=== PATIENT | female | born 1995 | race Caucasian/White ===

== ENCOUNTER 2024-09-17 13:17 | Inpatient (IN) | payer BC, SELFPAY ==
[2024-09-17] VITALS (14 sets, daily range): BP systolic 123–137; BP diastolic 73–92; PULSE 60–96; TEMP 36.2–36.8
[2024-09-17 12:37] LABS: Basophils Percent Auto 0.4 % (0.2-1.2); Eosinophils Percent Auto 0.4 % (0-4.4); Hematocrit 29.6 % (37.0-47.0); Hemoglobin 9.9 g/dL (12.0-15.0); Lymphocytes Absolute Auto 1.91 K/mm3 (0.9-3.2); Mean Corpuscular HGB Conc 33.4 g/dl (32-36); Mean Corpuscular Hemoglobin 29.6 pg (26-34); Mean Corpuscular Volume 88.6 fl (80-100); Mean Platelet Volume 11.1 fl (7.4-10.4); Monocytes Absolute Auto 0.7 K/mm3 (0.1-0.6); Monocytes Percent Auto 7.2 % (2.6-8.5); Neutrophils Absolute Auto 6.8 K/mm3 (1.3-6.7); Platelet Count Result 174 k/mm3 (150-375); Red Blood Count 3.34 M/mm3 (4.2-5.4); Red Cell Distribution Width 12.7 % (11.5-14.5); White Blood Count 9.5 K/mm3 (4.5-10.0)
[2024-09-17 12:52] LABS: Alanine Aminotransferase 36 U/L (6-35); Albumin Level 3.2 g/dL (3.5-5.1); Alkaline Phosphatase 173 U/L (38-126); Anion Gap 6 mmol/L (4-12); Aspartate Amino Transferase 35 U/L (14-36); Bilirubin,Total 0.6 mg/dL (0.2-1.3); Blood Urea Nitrogen 14 mg/dL (7-17); Calcium 8.2 mg/dL (8.4-10.2); Carbon Dioxide 20 mmol/L (22-30); Chloride 107 mmol/L (98-107); Estimated Glomerular Filt Rate > 60; Glucose 65 mg/dL (65-110); Potassium 4.2 mmol/L (3.4-5.0); Sodium 133 mmol/L (137-145); Uric Acid 6.7 mg/dL (2.5-7.5)
[2024-09-17 12:54] LABS: Add Urine Microscopic? YES; Appearance Urine Clear (Clear); Bacteria Urine 1+ /hpf; Bilirubin Urine Negative (Negative); Blood Urine Trace (Negative); Color Urine Yellow (Yellow); Glucose Urine UA Negative (Negative); Ketones Urine Negative (Negative); Leukocyte Esterase Ur Trace LEU/UL (Negative); Need Manual Microscopic Reviewed; Nitrate Urine Negative (Negative); Non Pathogenic Casts 0-2; Protein Urine 2+ mg/dL (Negative); RBC Urine 0-2 /hpf (0-2); Specific Grav Ur 1.007 (1.001-1.035); Squamous Epithelial Cell Urine Moderate /hpf (Few); Urobilinogen Urine 0.2 mg/dL (<2.0); pH Urine 6.5 (5.0-9.0)
[2024-09-17 13:02] LABS: Creatinine Urine 44.4 mg/dL; Total Protein Urine Random 168 mg/dL; Ur Ttl Prot Creatinine Ratio 3.78 mg/mg (0-0.20)
--- NOTE | 2024-09-17 14:57 | P.HP_ITS ---
H&P: HPI History of Present Illness Date/Time: 09/17/24 14:57 Chief Complaint: Headache and elevated blood pressure at term Narrative: 28-year-old 1 para 0 whose with unknown last menstrual. Been an EDC of 10/05/2024 confirmed by 10 week ultrasound presents at 37 half weeks gestation with headache and elevated blood pressures old ultrasound 37 weeks showed the baby to be 7lb 9oz she is presently proteinuric and the a with mildly elevated blood pressures she will undergo induction of labor secondary to these abnormal findings she is negative for group B strep PMFSH Family History Family History Grandparent Lung cancer Grandparent Cerebrovascular accident Grandparent Colon cancer Social History Social History Smoking status: Never smoker Substance use: current Do You Feel Safe in your Home?: Yes Lack of Transportation: No Lack of Food: Never True Current Housing: I Have Housing Concerned About Future Housing: No Difficulty Paying Gas/Electric Bills: No Difficulty Paying for Meds: No Currently Unemployed: No Education: Bachelor's Degree Difficulty w/ Childcare or Family Care: No Spiritual care concerns: No Meds Home Medications and Allergies Home Medications ?Medication ?Instructions ?Recorded ?Confirmed ?Type famotidine 20 mg tablet (Pepcid) 20 mg PO DAILY 09/06/24 09/17/24 History vit no.95-ferrous 1 tablet PO DAILY 09/06/24 09/17/24 History fumarate 28 mg-folic acid 800 mcg tablet () Allergies Allergy/AdvReac Type Severity Reaction Status Date / Time No Known Allergies Allergy Verified 09/06/24 14:58 Vital Signs Vital Signs - 24 hr 09/17/24 12:46 09/17/24 13:01 09/17/24 13:30 Pulse Rate 66 60 Blood Pressure 133/89 128/84 Oxygen Delivery Room Air 09/17/24 14:45 Pulse Rate 73 Blood Pressure 136/92 H Oxygen Delivery Exam Const: General: cooperative, healthy appearing and comfortable Nutritional Appearance: average body habitus Orientation/consciousness: oriented to person, oriented to place and oriented to time HENMT: Head: normal to inspection Resp: Effort & Inspection: normal respiratory effort Cardio: Rate: regular rate Rhythm: regular rhythm Heart sounds: S1 normal heart sound present and S2 normal heart sound present GI: Inspection: normal to inspection (Gravid soft uterus) Auscultation: normal bowel sounds : External Female Exam: normal external appearance Speculum Exam - Vagina: normal appearance of the vagina Speculum Exam - Cervix: normal appearance of the cervix (Cervix dimple thick. FHTs reassuring) H&P: Results Labs Labs: Short CBC 09/17/24 Range/Units 12:20 WBC 9.5 (4.5-10.0) K/mm3 Hgb 9.9 L (12.0-15.0) g/dL Hct 29.6 L (37.0-47.0) % Plt Count 174 (150-375) k/mm3 BMP 09/17/24 12:20 Sodium 133 L Potassium 4.2 Chloride 107 Carbon Dioxide 20 L BUN 14 Creatinine 0.85 Glucose 65 Calcium 8.2 L Liver Function 09/17/24 Range/Units 12:20 Total Bilirubin 0.6 (0.2-1.3) mg/dL AST 35 (14-36) U/L ALT 36 H (6-35) U/L Alkaline Phosphatase 173 H (38-126) U/L Albumin 3.2 L (3.5-5.1) g/dL Urine 09/17/24 Range/Units 12:20 Urine Color Yellow (Yellow) Urine Appearance Clear (Clear) Urine pH 6.5 (5.0-9.0) Ur Specific [place] 1.007 (1.001-1.035) Urine Protein 2+ H (Negative) mg/dL Urine Glucose (UA) Negative (Negative) mg/dL Assessment and Plan Assessment and plan (1) Preeclampsia: Code(s): O14.90 - Unspecified pre-eclampsia, unspecified trimester Status: Acute Plan Medical induction of labor. Consider magnesium. She is an epidural candidate
[2024-09-17 15:32] LABS: Syphilis IgG/IgM Antibody Negative (Negative)
[2024-09-17] MEDS: DINOPROSTONE 10 MG VAG INSERT VAGINAL (15:37)
[2024-09-17 15:45] LABS: HIV 1/2 Ab P24 Ag Result Negative (Negative)
[2024-09-18] VITALS (51 sets, daily range): BP systolic 111–139; BP diastolic 72–103; PULSE 50–78; RESP 16–20; TEMP 36.4–37.1; O2SAT 83–100
[2024-09-18] MEDS: OXYTOCIN 30 UNITS/NS 500 ML 30 UNITS/500 ML BAG IV CONT (04:30)
[2024-09-18] MEDS: LACTATED RINGERS 1,000 ML 125 ML IV CONT (04:30)
[2024-09-18 04:52] LABS: Basophils Percent Auto 0.3 % (0.2-1.2); Eosinophils Absolute Auto 0.1 K/mm3 (0-0.3); Hematocrit 28.2 % (37.0-47.0); Hemoglobin 9.4 g/dL (12.0-15.0); Immature Granulocyte Absolute 0.06 K/mm3 (0.00-0.031); Immature Granulocyte Percent A 0.7 % (0-0.5); Lymphocytes Absolute Auto 2.32 K/mm3 (0.9-3.2); Mean Corpuscular HGB Conc 33.3 g/dl (32-36); Mean Corpuscular Hemoglobin 29.4 pg (26-34); Mean Corpuscular Volume 88.1 fl (80-100); Mean Platelet Volume 10.7 fl (7.4-10.4); Monocytes Absolute Auto 0.7 K/mm3 (0.1-0.6); Monocytes Percent Auto 7.6 % (2.6-8.5); Neutrophils Absolute Auto 5.7 K/mm3 (1.3-6.7); Neutrophils Percent Auto 64.4 % (45.5-73.1); Platelet Count Result 129 k/mm3 (150-375); Red Cell Distribution Width 12.5 % (11.5-14.5); White Blood Count 8.9 K/mm3 (4.5-10.0)
[2024-09-18 05:05] LABS: Alanine Aminotransferase 36 U/L (6-35); Albumin Level 2.9 g/dL (3.5-5.1); Alkaline Phosphatase 152 U/L (38-126); Anion Gap 3 mmol/L (4-12); Aspartate Amino Transferase 42 U/L (14-36); Bilirubin,Total 0.6 mg/dL (0.2-1.3); Blood Urea Nitrogen 15 mg/dL (7-17); Calcium 8.2 mg/dL (8.4-10.2); Carbon Dioxide 22 mmol/L (22-30); Chloride 107 mmol/L (98-107); Estimated CRCL calculation 101 ml/min; Estimated Glomerular Filt Rate > 60; Glucose 76 mg/dL (65-110); Sodium 132 mmol/L (137-145)
[2024-09-18] MEDS: ACETAMINOPHEN 500 MG TABLET 1000 MG PO (05:33)
[2024-09-18] MEDS: ONDANSETRON INJ 4 MG/2 ML VIAL IV PUSH ×2 (05:41→10:08)
[2024-09-18] MEDS: FAMOTIDINE 20 MG/2 ML VIAL IV PUSH (05:41)
--- NOTE | 2024-09-18 05:50 | WPDHPUPDATE1 ---
History and Physical Update Update Date/Time: 09/18/24 05:50 History and Physical has been reviewed, including an updated exam of the patient. There are NO changes in the patient's condition. Risks, benefits, and alternatives have been discussed and questions answered. Patient agrees to proceed with procedure. The patient has not changed her cervix. Her swelling has markedly worsened and now she is hyperreflexic. Magnesium was begun and of offered the patient low-transverse section risks and benefits reviewed in great detail. Will proceed patient is agreeable
[2024-09-18] MEDS: ceFAZolin 2 GM/D5W 50 ML 2 GM/50 ML BAG IVPB (05:57)
[2024-09-18] MEDS: AZITHROMYCIN 500 MG/NS 250 ML 500 MG/250 ML BAG 250 MG IVPB (06:10)
--- NOTE | 2024-09-18 06:41 | P.PCNOB_ITS ---
OB - Delivery Note Procedure Delivery date: 09/18/24 Pre-op diagnosis: Arrest of Dilation and Preeclampsia w/o severe features Post-op Diagnosis: Same Induction method: Per Cervidil Protocol Delivery monitor: External FHT and External Uterine Prior to decision for section, ACOG/SMFM labor guidelines were considered and discussed with the patient and staff. Decision made to proceed with the section.: Yes Procedure Performed: Primary Surgeon: Jr Holt MD Anesthesia type: Spinal Description of Procedure/Findings: see dictation Specimen: No Estimated Blood Loss: 280 Urine Output: 500 Drains: No Packing: No Pathology: None sent Complications: No immediate complications Condition: Stable Disposition: Floor Baby Date of : 09/18/24 Time of : 06:22 Infant gender: Male Weight (pounds): 7 Weight (ounces): 10 presentation: vertex position: Right Occiput Anterior Placenta delivery description: Manual Removal Cord Vessel Description: 3 Vessels score one minute: 9 score five minutes: 9 Narrative: The patient was admitted for induction of labor secondary to elevated blood pressures. She had features consistent with preeclampsia her blood pressures were fairly stable warmer worsened she had change cervix she was offered low- transverse section After obtaining informed consent she was taken back prepped and draped in normal sterile fashion placed in supine position. Excellent spinal anesthetic the abd omen was entered in Pfannenstiel fashion risks layers of fascia. Fascia incised midline cure number fashion bilaterally. Underlying muscles sharply dissected burned by clinical clamps and by sharp dissection was carried superiorly and inferiorly dome of the bladder. Bladder blade was placed. Bladder flap was formed. Low-transverse incision made the head delivered in the TORIN position. Anterior posterior shoulder delivered spontaneously. Cord clamped and cut and paste were given Apgars of 9 [id number] 9 [id number]. Cord blood was drawn. Placenta delivered intact manually. Uterus delivered from the abdomen wrapped in moist towel. After assuring no membranes or debris remained in the uterus, the uterus closed with running locking 0 Vicryl from lateral edge to lateral edge. This followed by 2nd imbricating 0 Vicryl from lateral edge to lateral edge. Hemostasis was assured. A small fibroid about the size of a marble was seen at the uterine fundus the ovaries and tubes appeared within normal limits hysterotomy incision was intact and with uterus returned to the abdomen. The laps removed and accounted for and the/hysterotomy incision inspected 1 last time noted be hemostatic. The fascia closed with continuous running 0 Vicryl from lateral edge to lateral edge. Irrigation subcutaneous layer and the skin closed with 4 Monocryl glue QBL was 280cc. All sponge, needle, instrument counts were correct. She did received 20 Lasix post delivery and will continue on magnesium 1g per 24hours
--- NOTE | 2024-09-18 06:46 | PM.DS ---
DS: Admitting Diagnosis Discharge Date 09/20/2024 Admitting Diagnosis Term /preeclampsia DS: Discharge Diagnosis Discharge Diagnosis (1) Preeclampsia: Code(s): O14.90 - Unspecified pre-eclampsia, unspecified trimester Status: Acute (2) Term : Code(s): Z34.90 - Encounter for supervision of normal , unspecified, unspecified trimester Status: Acute DS: Summary Hospital Course Reason for hospitalization: Patient was 09/18/2019 for induction labor Cervidil the a.m. of 5 preeclamptic symptoms appear to be worsening she was hyperreflexic and markedly more swollen with no cervical change decision was made for low-transverse section which she undertook that morning. Hospital Course: Patient's hospital course. Magnesium continued for 24hours. The patient was up voiding difficulty eating regular diet ambulating and generally without complaints. Time Spent with Patient Time attestation: Total time spent providing and/or coordinating discharge services: Exam Const: General: cooperative, healthy appearing and comfortable Nutritional Appearance: average body habitus Orientation/consciousness: oriented to person, oriented to place and oriented to time HENMT: Head: normal to inspection Resp: Effort & Inspection: normal respiratory effort Cardio: Rate: regular rate Rhythm: regular rhythm Heart sounds: S1 normal heart sound present and S2 normal heart sound present GI: Inspection: normal to inspection (Fundus firm below the umbilicus) and incision (Wound clean dry and) DS: Data Data Completed and Pending Labs on day of discharge: Labs from last 24 hours 09/18/24 09/17/24 09/17/24 04:44 14:33 12:20 WBC 8.9 9.5 RBC 3.20 L 3.34 L Hgb 9.4 L 9.9 L Hct 28.2 L 29.6 L MCV 88.1 88.6 MCH 29.4 29.6 MCHC 33.3 33.4 RDW 12.5 12.7 Plt Count 129 L 174 MPV 10.7 H 11.1 H Immature Gran % (Auto) 0.7 H 1.0 H Neut % (Auto) 64.4 71.0 Lymph % (Auto) 26.0 20.0 [place] % (Auto) 7.6 7.2 Eos % (Auto) 1.0 0.4 Baso % (Auto) 0.3 0.4 Lymph # (Auto) 2.32 1.91 [place] # (Auto) 0.7 H 0.7 H Eos # (Auto) 0.1 0.0 Baso # (Auto) 0.0 0.0 Abs Immat Gran (auto) 0.06 H 0.10 H Absolute Neuts (auto) 5.7 6.8 H Absolute Nucleated RBC 0.000 0.000 Nucleated RBC % 0.0 0.0 Sodium 132 L 133 L Potassium 4.0 4.2 Chloride 107 107 Carbon Dioxide 22 20 L Anion Gap 3 L 6 BUN 15 14 Creatinine 0.83 0.85 Estim Creat Clear Calc 101 Not Reportable Estimated GFR > 60 > 60 Glucose 76 65 Uric Acid 7.0 6.7 Calcium 8.2 L 8.2 L Total Bilirubin 0.6 0.6 AST 42 H 35 ALT 36 H 36 H Alkaline Phosphatase 152 H 173 H Total Protein 6.0 L 6.0 L Albumin 2.9 L 3.2 L Urine Color Yellow Urine Appearance Clear Urine pH 6.5 Ur Specific [place] 1.007 Urine Protein 2+ H Urine Glucose (UA) Negative Urine Ketones Negative Ur Blood (Man) Trace Urine Nitrate Negative Urine Bilirubin Negative Urine Urobilinogen 0.2 Add Ur Microanalysis Reviewed Leukocyte Esterase Rfl Trace H Urine RBC 0-2 Urine WBC 6-10 H Ur Squamous Epith Cells Moderate Urine Bacteria 1+ H Urine Casts 0-2 U Random Total Protein 168 Urine Creatinine 44.4 Protein/Creat Ratio 2 3.78 H Syphilis IgG/IgM Ab Negative HIV 1&2 Ab/P24 Ag 4thGn Negative Blood Type A Positive Antibody Screen Negative Discharge Plan Discharge Attending physician on discharge: Jr Kellogg Discharging Clinician: Jr Kellogg Patient Disposition: Home Activity: may shower, no straining, may drive after 2 weeks and pelvic rest Diet: heart healthy Wound Care Instructions: follow printed instructions Patient Instructions: Antibiotic Form Patient Language: Micronesian Stand Alone Forms: General Discharge Information Follow-up/Referrals: Jr Kellogg MD [Physician] - Discharge Medications: New hydrocodone-acetaminophen 5-325 mg tablet 1 tablet PO Q4H PRN (Reason: pain) Qty: 20 0RF Continued PNV cmb#95-ferrous fumarate-FA [] 28 mg iron- 800 mcg tablet 1 tablet PO DAILY famotidine [Pepcid] 20 mg tablet 20 mg PO DAILY Date of admission: 09/17/24 13:17 Primary Care Provider: Rosita,Arun Morfin Admitting Provider: Jr Kellogg Attending physician on admission: Jr Kellogg Condition: Stable
[2024-09-18] MEDS: MAGNESIUM SULF 20GM/WATER500ML 500 ML 25 MG IV CONT (07:00)
[2024-09-18] MEDS: miSOPROStol 200 MCG TABLET 1000 MCG RECTAL (07:30)
[2024-09-18] MEDS: MORPHINE SULFATE INJ (*CRX) 10 MG/ML AMP 3 MG IV PUSH ×2 (07:38→08:04)
[2024-09-18] MEDS: OXYTOCIN 10 UNITS/ML VIAL IV CONT (08:22)
[2024-09-18] MEDS: LIDOCAINE 5% PATCH 1 PATCH TRANSDERM (08:30)
--- NOTE | 2024-09-18 09:15 | PC.NURSE ---
Patient transferred to post room #282 via stretcher. Support person present. Oriented to unit, room, information board, rooming in, admission packet and security measures. Patient verbalizes understanding.
--- NOTE | 2024-09-18 10:23 | PC.NURSE ---
[address] Debi Holt to report on pt. blood loss. Orders received.
--- NOTE | 2024-09-18 10:25 | PC.NURSE ---
0815 Order received to increase rate of pitocin infusing to 150 mL/hr.
--- NOTE | 2024-09-18 10:26 | PC.NURSE ---
0822 Orders received to add 10 units of pitocin to the bag currently infusing.
[2024-09-18] MEDS: OXYTOCIN 30 UNITS/NS 500 ML 30 UNITS/500 ML BAG 100 UNITS IV CONT (10:39)
[2024-09-18] MEDS: KETOROLAC 15 MG/ML VIAL (*BKC) IV PUSH ×2 (15:00→21:02)
[2024-09-18] MEDS: ACETAMINOPHEN 325 MG TABLET 650 MG PO ×2 (15:01→21:01)
[2024-09-18] MEDS: DEXTROSE 5%/0.45% SOD CHL 1,000 ML 100 ML IV CONT (15:40)
--- NOTE | 2024-09-18 17:15 | PC.NURSE ---
Consulted with patient to assess needs related to , she had a successful early today while I was her primary RN, now I am doing a assessment. Discussed with mother her successes, concerns and any questions she has. We reviewed working with the , supporting breast, protecting her nipples with an optimal deep latch, good positioning, and good hand washing. Encouraged understanding the benefits of skin to skin, responding to feeding cues, frequencies of feeding 8-12 times in 24 hours (approximately 2-3 hours), duration of feedings, milk production, intake/output feeding sheet and signs of adequate intake encouraging swallowing at the breast. Reviewed positioning and alignment, supporting breast, off-centered (asymmetrical latch) and leading with the chin with big, open, wide gape. Infant latched optimally to the [right] breast in [cross cradle] position. Education given to the mother of how to visualize the suckling (with good rocking jaw motion) swallows (dropping of the lower jaw) and how to listen for drinking at the breast (the ka sound). The was [able] to maintain latch without discomfort to mother. Nipple care reviewed with optimal latch, good positioning and using clean hands when touching her breast. Resources used to facilitate learning were used from the [visual handouts/ tool/mom and baby guide]. Mother voiced understanding of the education shared, to call for assistance if the does not latch or if there is discomfort with . Reported to the Primary RN (Arianna).
[2024-09-18] MEDS: DOCUSATE SODIUM 100 MG CAPSULE PO (17:39)
[2024-09-18] MEDS: SIMETHICONE 80 MG TAB.CHEW PO (17:39)
[2024-09-18] MEDS: POLYSACCHARIDE IRON COMPLEX 150 MG CAPSULE PO (17:39)
[2024-09-19] VITALS (7 sets, daily range): BP systolic 107–132; BP diastolic 59–91; PULSE 62–82; RESP 16–18; TEMP 36.6–37.1; O2SAT 95–99
[2024-09-19] MEDS: KCL 20 MEQ/D5/0.45% SOD CHL 1,000 ML 125 ML IV CONT (01:28)
[2024-09-19] MEDS: MAGNESIUM SULF 20GM/WATER500ML 500 ML 25 MG IV CONT (01:51)
[2024-09-19] MEDS: KETOROLAC 15 MG/ML VIAL (*BKC) IV PUSH ×2 (03:04→09:56)
[2024-09-19] MEDS: ACETAMINOPHEN 325 MG TABLET 650 MG PO ×4 (03:04→23:00)
[2024-09-19 03:40] LABS: Basophils Percent Auto 0.2 % (0.2-1.2); Eosinophils Percent Auto 0.3 % (0-4.4); Hematocrit 22.9 % (37.0-47.0); Hemoglobin 7.7 g/dL (12.0-15.0); Immature Granulocyte Absolute 0.05 K/mm3 (0.00-0.031); Immature Granulocyte Percent A 0.4 % (0-0.5); Lymphocytes Absolute Auto 2.33 K/mm3 (0.9-3.2); Lymphocytes Percent Auto 20.7 % (18.3-44.2); Mean Corpuscular HGB Conc 33.6 g/dl (32-36); Mean Corpuscular Hemoglobin 29.4 pg (26-34); Mean Corpuscular Volume 87.4 fl (80-100); Mean Platelet Volume 10.5 fl (7.4-10.4); Monocytes Absolute Auto 0.9 K/mm3 (0.1-0.6); Monocytes Percent Auto 7.5 % (2.6-8.5); Neutrophils Percent Auto 70.9 % (45.5-73.1); Platelet Count Result 146 k/mm3 (150-375); Red Blood Count 2.62 M/mm3 (4.2-5.4); Red Cell Distribution Width 12.6 % (11.5-14.5); White Blood Count 11.3 K/mm3 (4.5-10.0)
[2024-09-19 03:52] LABS: Alanine Aminotransferase 30 U/L (6-35); Albumin Level 2.3 g/dL (3.5-5.1); Alkaline Phosphatase 115 U/L (38-126); Anion Gap 1 mmol/L (4-12); Aspartate Amino Transferase 39 U/L (14-36); Bilirubin,Total 0.3 mg/dL (0.2-1.3); Blood Urea Nitrogen 16 mg/dL (7-17); Calcium 7.2 mg/dL (8.4-10.2); Carbon Dioxide 24 mmol/L (22-30); Chloride 103 mmol/L (98-107); Estimated CRCL calculation 101 ml/min; Estimated Glomerular Filt Rate > 60; Glucose 78 mg/dL (65-110); Sodium 128 mmol/L (137-145)
--- NOTE | 2024-09-19 05:09 | PC.NURSE ---
0500- due to infant being sleepy attempted hand expression with pt and drops expressed. Pt verbalized wanting to try a hand pump instead. Hand pump provided and flange fit 24mm with no discomfort. Education given on pumping schedule and storage of breast milk as well as cleaning of pump parts. Encouraged pt to pump for 10-15 min and call out when done so this rn can assist with feeding EBM. Pt verbalized understanding and denies any questions or complaints at this time.
--- NOTE | 2024-09-19 06:17 | P.PNOB_ITS ---
OB - PN: Subj Subjective Date/time seen: 09/19/24 06:17 Patient comments: no complaints, pain well controlled, incisional pain, tolerating diet and flatus present baby status: doing well and other (Dealing with blood sugars circ tomorrow) OB - PN: Obj Data Labs 09/19/24 03:15 09/19/24 03:15 Labs: Laboratory Results - last 24 hr 09/19/24 03:15 WBC 11.3 H RBC 2.62 L Hgb 7.7 L Hct 22.9 L MCV 87.4 MCH 29.4 MCHC 33.6 RDW 12.6 Plt Count 146 L MPV 10.5 H Immature Gran % (Auto) 0.4 Neut % (Auto) 70.9 Lymph % (Auto) 20.7 [place] % (Auto) 7.5 Eos % (Auto) 0.3 Baso % (Auto) 0.2 Lymph # (Auto) 2.33 [place] # (Auto) 0.9 H Eos # (Auto) 0.0 Baso # (Auto) 0.0 Abs Immat Gran (auto) 0.05 H Absolute Neuts (auto) 8.0 H Absolute Nucleated RBC 0.000 Nucleated RBC % 0.0 Sodium 128 L Potassium 4.0 Chloride 103 Carbon Dioxide 24 Anion Gap 1 L BUN 16 Creatinine 0.83 Estim Creat Clear Calc 101 Estimated GFR > 60 Glucose 78 Calcium 7.2 L Total Bilirubin 0.3 AST 39 H ALT 30 Alkaline Phosphatase 115 Total Protein 5.0 L Albumin 2.3 L OB - PN A/P Assessment and Plan (1) Preeclampsia: Code(s): O14.90 - Unspecified pre-eclampsia, unspecified trimester Status: Acute (2) Term : Code(s): Z34.90 - Encounter for supervision of normal , unspecified, unspecified trimester Status: Acute (3) Anemia: Code(s): D64.9 - Anemia, unspecified Status: Acute Plan Stop magnesium. Increase activity. Start iron for anemia Time Spent With Patient Time: Total time spent is greater than 50% in coordination of care (as documented) at patient's floor/unit and/or counseling patient: Review of Systems 2 Review of Systems: All systems reviewed & are unremarkable except as noted in HPI and below Exam 2 Const: General: cooperative, healthy appearing and comfortable Nutritional Appearance: average body habitus Orientation/consciousness: oriented to person, oriented to place and oriented to time HENMT: Head: normal to inspection Resp: Effort & Inspection: normal respiratory effort Cardio: Rate: regular rate Rhythm: regular rhythm Heart sounds: S1 normal heart sound present and S2 normal heart sound present GI: Inspection: normal to inspection (Fundus firm below the umbilicus) and incision (Wound clean dry and)
[2024-09-19] MEDS: SIMETHICONE 80 MG TAB.CHEW PO ×2 (09:57→15:02)
[2024-09-19] MEDS: LIDOCAINE 5% PATCH 1 PATCH TRANSDERM (09:57)
[2024-09-19] MEDS: DOCUSATE SODIUM 100 MG CAPSULE PO ×2 (09:57→16:28)
[2024-09-19] MEDS: MULTIVIT/MIN/PREN/FOL AC/IRON TABLET 1 TAB PO (09:57)
[2024-09-19] MEDS: POLYSACCHARIDE IRON COMPLEX 150 MG CAPSULE PO ×2 (09:57→16:28)
--- NOTE | 2024-09-19 13:03 | WPDANLDPN2 ---
Anes-Prog Note L&D Date/Time: 09/19/24 13:03 Comfortable throughout: section Neuraxial method: spinal Epidural/Spinal procedure site: clean & non-tender Neuro status: Neuro function grossly intact. Cardiovascular status: normal Respiratory status: normal Airway patency: baseline Mental status: baseline Post-Op hydration status: normal Vital Signs: Last Vital Signs Temp 37.1 C 09/19/24 08:20 Pulse 75 09/19/24 12:35 Resp 16 09/19/24 08:20 BP 126/90 09/19/24 12:35 Pulse Ox 96 09/19/24 08:20 O2 Del Method Room Air 09/18/24 19:10 Pain score (VAS): 0 I/O: Intake & Output 09/18/24 09/19/24 09/19/24 23:59 07:59 15:59 Intake Total 950 1650.3 900 Output Total 450 2650 600 Balance 500 -999.7 300 Post-procedural complaints: none Patient feedback: Patient satisfied with anesthetic care.
--- NOTE | 2024-09-19 13:03 | WPDANLDNPN2 ---
Anes-Prog Note L&D-Neuraxial Date/Time: 09/19/24 13:03 Neuraxial medications: intrathecal PF morphine Opiod-related complaints: none Patient feedback: Patient satisfied with post-operative pain management.
[2024-09-19] MEDS: HYDROcodone/acetaminophen (*CRX) 5-325 MG TABLET 1 TAB PO (15:02)
[2024-09-19] MEDS: IBUPROFEN 600 MG TABLET PO ×2 (16:28→23:00)
[2024-09-20 05:00] VITALS: BP 128/90; PULSE 77; RESP 16; TEMP 36.8; O2SAT 99
[2024-09-20] MEDS: IBUPROFEN 600 MG TABLET PO ×4 (05:00→22:10)
[2024-09-20] MEDS: ACETAMINOPHEN 325 MG TABLET 650 MG PO ×4 (05:00→22:10)
--- NOTE | 2024-09-20 06:56 | P.PNOB_ITS ---
OB - PN: Subj Subjective Date/time seen: 09/20/24 06:56 Patient comments: no complaints, pain well controlled, incisional pain, tolerating diet and flatus present baby status: doing well OB - PN: Obj Data Labs 09/19/24 03:15 09/19/24 03:15 OB - PN A/P Assessment and Plan (1) Anemia: Code(s): D64.9 - Anemia, unspecified Status: Acute (2) Term : Code(s): Z34.90 - Encounter for supervision of normal , unspecified, unspecified trimester Status: Acute (3) Preeclampsia: Code(s): O14.90 - Unspecified pre-eclampsia, unspecified trimester Status: Acute Plan Routine care Time Spent With Patient Time: Total time spent is greater than 50% in coordination of care (as documented) at patient's floor/unit and/or counseling patient: Review of Systems 2 Review of Systems: All systems reviewed & are unremarkable except as noted in HPI and below Exam 2 Const: General: cooperative, healthy appearing and comfortable Nutritional Appearance: average body habitus Orientation/consciousness: oriented to person, oriented to place and oriented to time HENMT: Head: normal to inspection Resp: Effort & Inspection: normal respiratory effort Cardio: Rate: regular rate Rhythm: regular rhythm Heart sounds: S1 normal heart sound present and S2 normal heart sound present GI: Inspection: normal to inspection (Fundus firm below the umbilicus) and incision (Wound clean dry and)
[2024-09-20 07:55] VITALS: BP 128/85; PULSE 70; RESP 16; TEMP 36.8; O2SAT 99
[2024-09-20] MEDS: MULTIVIT/MIN/PREN/FOL AC/IRON TABLET 1 TAB PO (08:09)
[2024-09-20] MEDS: DOCUSATE SODIUM 100 MG CAPSULE PO ×2 (08:10→17:11)
[2024-09-20] MEDS: SIMETHICONE 80 MG TAB.CHEW PO ×3 (08:10→17:11)
[2024-09-20] MEDS: POLYSACCHARIDE IRON COMPLEX 150 MG CAPSULE PO ×2 (08:10→17:11)
--- NOTE | 2024-09-20 08:20 | PC.NURSE ---
Introductions were made, then consulted with patient to assess needs related to . Discussed with mother her?plans to feed?her and the?experience so far. Baby had a 10% weight loss and there is a doctor's order for supplementation after each . Discussed need to pump with mom. She has a hand pump in the room and she is encouraged to use hands on pumping a few times a day to increase stimulation for a robust milk supply. An electric pump will be provided if desired. Mom states that baby has gone from breast to bottle and back to breast easily so far. Dad has enjoyed being able to participate in feedings with the bottle. Reminded parents that any missed breastfeedings need to be replaced with a pumping session to maintain milk supply. Resources provided for inpatient and outpatient services with the feeding sheet, mom/baby guide and name written on the communication board. Mother voiced understanding of information and will call if there is a request for assistance. Reported to the Primary RN.
--- NOTE | 2024-09-20 09:30 | PC.NURSE ---
Patient called out for feeding assistance. She had attempted to breastfeed but baby was just circumcised and is very sleepy. Dad was attempting to give the bottle and was able to get about 5ml. Parents were shown how to use chin and cheek support to facilitate a good seal on the bottle nipple. Baby smacks on the bottle nipple and mom says that he smacks at breast also. When baby opens his mouth to latch to the nipple, his tongue is up on the roof of his mouth. Dad says that he has seen baby move his tongue out past his lower gums. Discussed with parents that late infants sometimes lack the strength to maintain a latch and transfer adequate amounts of milk at the breast. It is possible that his previous feedings have been largely ineffective due to tongue placement. Baby was able to take 20ml of Enfamil and mom says that she will call out at the next feeding time so that we can work on latching at the breast. RN updated.
[2024-09-20] MEDS: LIDOCAINE 5% PATCH 1 PATCH TRANSDERM (11:05)
--- NOTE | 2024-09-20 12:30 | PC.NURSE ---
Patient called out for a latch check. She holds baby in cradle hold and he latches easily and optimally. Mom declines pain. She states that her nipple is sometimes smashed when baby comes off the breast. We reviewed that this can be a sign of a shallow latch, but that baby's mouth may just need to grow to accommodate a deeper latch. Baby was observed to suckle with bursts of 6-7 sucks per swallow. He appears to be feeding effectively. Mom is encouraged to incorporate hand pumping or expression on occasion if desired. She does have a history of preeclampsia and hemorrhage. Parents will continue to supplement with formula after each until baby has gained weight and their supervisor buffing and pasting has advised them to stop. Parents are encouraged to call out for assistance at any other feedings today. Reported to RN.
[2024-09-20 13:22] VITALS: BP 133/93; PULSE 68; RESP 18; TEMP 37.3; O2SAT 100
[2024-09-20 16:59] VITALS: BP 131/84; PULSE 79; RESP 18; TEMP 37.2; O2SAT 97
[2024-09-20 19:00] VITALS: BP 137/90; PULSE 72; RESP 18; TEMP 36.7; O2SAT 99
[2024-09-21] VITALS: BP 136/90; PULSE 63; RESP 18; TEMP 36.6; O2SAT 99
[2024-09-21 04:00] VITALS: BP 139/95; PULSE 64; RESP 18; TEMP 36.4; O2SAT 99
[2024-09-21] MEDS: ACETAMINOPHEN 325 MG TABLET 650 MG PO ×2 (04:10→10:40)
[2024-09-21] MEDS: IBUPROFEN 600 MG TABLET PO ×2 (04:10→10:40)
--- NOTE | 2024-09-21 07:33 | P.PNOB_ITS ---
OB - PN: Subj Subjective Date/time seen: 09/21/24 07:33 Patient comments: no complaints, pain well controlled, tolerating diet and flatus present [place] baby status: doing well and other (bit of baby weight loss) OB - PN: Obj Data Labs 09/19/24 03:15 09/19/24 03:15 OB - PN A/P Assessment and Plan (1) Preeclampsia: Code(s): O14.90 - Unspecified pre-eclampsia, unspecified trimester Status: Acute (2) Term : Code(s): Z34.90 - Encounter for supervision of normal , unspecified, unspecified trimester Status: Acute (3) Anemia: Code(s): D64.9 - Anemia, unspecified Status: Acute Plan Comments: home Time Spent With Patient Time: Total time spent is greater than 50% in coordination of care (as documented) at patient's floor/unit and/or counseling patient: Review of Systems 2 Review of Systems: All systems reviewed & are unremarkable except as noted in HPI and below Exam 2 Const: General: cooperative, healthy appearing and comfortable Nutritional Appearance: average body habitus Orientation/consciousness: oriented to person, oriented to place and oriented to time HENMT: Head: normal to inspection Resp: Effort & Inspection: normal respiratory effort Cardio: Rate: regular rate Rhythm: regular rhythm Heart sounds: S1 normal heart sound present and S2 normal heart sound present GI: Inspection: normal to inspection (Fundus firm below the umbilicus) and incision (Wound clean dry and)
[2024-09-21 08:25] VITALS: BP 143/91; PULSE 65; RESP 16; TEMP 36.8; O2SAT 100
[2024-09-21] MEDS: MULTIVIT/MIN/PREN/FOL AC/IRON TABLET 1 TAB PO (08:55)
[2024-09-21] MEDS: POLYSACCHARIDE IRON COMPLEX 150 MG CAPSULE PO (08:55)
[2024-09-21] MEDS: SIMETHICONE 80 MG TAB.CHEW PO (08:55)
[2024-09-21] MEDS: DOCUSATE SODIUM 100 MG CAPSULE PO (08:55)
--- NOTE | 2024-09-21 09:52 | PC.NURSE ---
0750 Consulted with patient to assess needs related to . Mother requested to have nipples measured for her [employer] Breast pump at home, both measured 20mm. Discussed with mother her successes, concerns and any questions she has. We reviewed working with the infant, supporting breast, protecting her nipples with an optimal deep latch, good positioning, and good hand washing. Encouraged understanding the benefits of skin to skin, responding to feeding cues, frequencies of feeding 8-12 times in 24 hours (approximately 2-3 hours), duration of feedings, milk production, intake/output feeding sheet and signs of adequate intake encouraging swallowing at the breast. Reviewed positioning and alignment, supporting breast, off-centered (asymmetrical latch) and leading with the chin with big, open, wide gape. latched optimally to the [right] breast in [cross cradle] position. Education given to the mother of how to visualize the suckling (with good rocking jaw motion) swallows (dropping of the lower jaw) and how to listen for drinking at the breast (the ka sound). The was [able] to maintain latch without discomfort to mother. Nipple care reviewed with optimal latch, good positioning and using clean hands when touching her breast. Resources used to facilitate learning were used from the [visual handouts/ tool/mom and baby guide]. Mother voiced understanding of the education shared, to call for assistance if the infant does not latch or if there is discomfort with . Reported to the Primary RN. 0915 Mother is feeding appropriately for growth of and understands stimulating infant to eat if needed. Infant has had appropriate feedings in the last 24 hours meets the outcomes for weight, infant is currently also receiving supplemental formula , output, blood sugar and jaundice at this time. Reinforced understanding of milk production, transition of milk, signs of adequate intake, transition of stool, prevention/relief of engorgement, plugged ducts, mastitis, responsive watching for feeding cues, the different methods of stimulating to breastfeed 1-3 hours after the start of the last feeding, community resources, and when to call a provider using the resource of the feeding sheet along with the mom and baby guide. Mother voiced understanding of the information shared, is confident to continue effectively her infant at home, when to call for assistance, denies any additional assistance or education at this time. Reported to the Primary RN.
[2024-09-22 11:30] VITALS: BP 137/91; PULSE 82; RESP 18; TEMP 37; O2SAT 100
== END 2024-09-21 11:50 | disposition home or self-care (01) | DRG 788 ==
LOC: ANHOBOP 14:12 → ANHLDR 14:12 → ANHOB2 09-18 09:30
PROVIDERS: Admitting Provider Obstetrics & Gynecology; PCP Emergency Medicine; Visit Provider Obstetrics & Gynecology
PROC: 10D00Z1 Extraction of Products of Conception, Low, Open Approach (ICD-10-PCS; CPT 59514; principal; 2024-09-18 05:20)
DX: O62.0 Primary inadequate contractions (principal); O14.04 Mild to moderate pre-eclampsia, complicating childbirth; O34.13 Maternal care for benign tumor of corpus uteri, third trimester; D25.9 Leiomyoma of uterus, unspecified; O99.02 Anemia complicating childbirth; Z3A.37 37 weeks gestation of pregnancy; Z37.0 Single live birth
CPT/HCPCS: 36415; 80053; 81001; 82570; 84156; 84550; 85025; 86593; 86703; 86850; 86900; 86901; A9270; G0432; J0456; J0690; J1100; J1885; J2003; J2270; J2274; J2405; J2590; J3475; J3480; J7120